=== PATIENT | female | born 1985 | race Caucasian/White ===

== ENCOUNTER 2016-07-26 22:53 | Emergency (ER) | payer SELFPAY ==
[2016-07-27] MEDS ORDERED: METOCLOPRAMIDE HCL ORAL SOLN 10 MG/10 ML UDCUP PO ONE (01:02)
[2016-07-27] MEDS ORDERED: KETOROLAC TROMETHAMINE 60 MG/2 ML SDV IM ONE (01:02)
--- NOTE | 2016-07-27 01:05 | ER Document Report ---
ED General - General Chief Complaint: High Blood Pressure Stated Complaint: POSSIBLE HIGH BLOOD PRESURE Time Seen by Provider: 07/27/16 00:55 Notes: Patient is a 31-year-old female presents with complaints of migraine headaches. She says she was diagnosed with migraines at age 9. She said she had them almost weekly until the age of 13. Since then they have been more intermittent. She says recently they have started become more consistent again. She takes Zofran and Tylenol home for the headaches and vomiting. Headaches are gradual in onset and intermittent. No focal weakness or numbness associated with them. No recent trauma or injuries. No neck pain. Patient also mentions that she has been having high blood pressure. She says after delivery of her child she was diagnosed with high blood pressure and placed on medications. After being on medications for 6 months I took her off medications. Since being taken off medications she says her blood pressure is very up and down. She says it is hard to keep under control. She is not gone back on any antihypertensive medications since being taken off of them. No other complaints at this time. TRAVEL OUTSIDE OF THE [place] IN LAST 30 DAYS: No - Related Data Allergies/Adverse Reactions: No Known Allergies Allergy (Verified 04/27/15 20:32) Past Medical History - Social History Smoking Status: Never Smoker Frequency of alcohol use: None Drug Abuse: None Family History: Reviewed & Not Pertinent Patient has suicidal ideation: No Patient has homicidal ideation: No - Past Medical History Cardiac Medical History: Reports: Hx Hypertension - with preg Pulmonary Medical History: Reports: Hx Asthma Neurological Medical History: Reports: Hx Migraine Renal/ Medical History: Reports: Hx Ovarian Cysts. Denies: Hx Peritoneal Dialysis Skin Medical History: Reports Hx Eczema, Denies Hx MRSA Psychiatric Medical History: Reports: Hx Anxiety Past Surgical History: Reports: Hx Section - x2 - Immunizations Immunizations up to date: Yes Hx Diphtheria, Pertussis, Tetanus Vaccination: Yes - given today Hx Pneumococcal Vaccination: 09/17/12 Review of Systems - Review of Systems Notes: My Normal Review Basic REVIEW OF SYSTEMS: CONSTITUTIONAL : Denies fever, chills, or sweats. Denies recent illness. CARDIOVASCULAR: Denies chest pain. RESPIRATORY: Denies cough, cold, or chest congestion. Denies shortness of breath, difficulty breathing, or wheezing. GASTROINTESTINAL: Denies abdominal pain. Denies nausea, vomiting, or diarrhea. Denies constipation. Last BM: GENITOURINARY: Denies difficulty urinating, painful urination, burning, frequency, or blood in urine. FEMALE GENITOURINARY: Denies vaginal bleeding, abnormal or irregular periods. Patient denies any chance she could be . MUSCULOSKELETAL: Denies neck or back pain or joint pain or swelling. SKIN: Denies rash or skin lesions. NEUROLOGICAL: Denies altered mental status or loss of consciousness. Has a headache. Denies weakness or paralysis or loss of use of either side. Denies problems with gait or speech. Denies sensory or motor loss. ALL OTHER SYSTEMS REVIEWED AND NEGATIVE. Physical Exam - Vital signs Vitals: Temp Pulse Resp BP Pulse Ox 98.3 F 86 16 152/109 H 98 07/26/16 23:02 07/26/16 23:02 07/26/16 23:02 07/26/16 23:02 07/26/16 23:02 - Notes Notes: General Appearance: Well nourished, alert, cooperative, no acute distress, mild obvious discomfort. Vitals: reviewed, See vital signs table. Head: no swelling or tenderness to the head Eyes: PERRL, EOMI, Conjuctiva clear Mouth: No decreasd moisture Lungs: No wheezing, No rales, No rhonci, No accessory muscle use, good air exchange bilaterally. Heart: Normal rate, Regular rythm, No murmur, no rub Abdomen: Normal BS, soft, No rigidity, No abdominal tenderness, No guarding, no rebound, no abdominal masses, no organomegaly Extremities: strength 5/5 in all extremities, good pulses in all extremities, no swelling or tenderness in the extremities, no edema. Skin: warm, dry, appropriate color, no rash Neuro: speech clear, oriented x 3, normal affect, responds appropriately to questions. Cranial nerves II through XII are intact. Distal sensation intact. Patient moves all extremities without difficulty. Normal gait. Normal Romberg. Course - Vital Signs Vital signs: Temp Pulse Resp BP Pulse Ox 98.3 F 86 16 152/109 H 98 07/26/16 23:02 07/26/16 23:02 07/26/16 23:02 07/26/16 23:02 07/26/16 23:02 - Transfer of Care Notes: 07/27/16 02:17 Patient's headache is much improved. I will write her prescription for Reglan to take with her Winnie. Her headaches are very typical of her previous migraines. They are not sudden or maximal in onset. She has no neurologic deficits. She does have hypertension. She has a strong family history of hypertension stroke at a young age. I will place her on hydrochlorothiazide. She has an upcoming appointment with her doctor third week of this month. I encouraged her to discuss this further with her doctor to show them the medication that we are starting her on. Patient encouraged to return to ER if she has worsening of her symptoms or feels unwell. Patient agrees with plan and will be discharged home. Dictation of this chart was performed using voice recognition software; therefore, there may be some unintended grammatical errors. Discharge - Discharge Clinical Impression: Hypertension Qualifiers: Hypertension type: essential hypertension Qualified Code(s): I10 - Essential ( primary) hypertension Headache Qualifiers: Headache type: unspecified Headache chronicity pattern: episodic headache Intractability: not intractable Qualified Code(s): R51 - Headache Condition: Good Disposition: HOME, SELF-CARE Instructions: Hydrochlorothiazide ([facility]) Additional Instructions: Please take the medication as prescribed for you headaches. Please follow up with your doctor as scheduled and discuss with them further management of your blood pressure. Please stop taking the blood pressure medication if your blood pressure begins to fall below 110/70. Please return to the ER immediately if you have intractable headaches, fevers, weakness or numbness of your arms or legs, or if you feel unwell. Prescriptions: Hydrochlorothiazide 12.5 mg PO DAILY #30 capsule Metoclopramide HCl [Reglan 10 mg Tablet] 1 tab PO ASDIR PRN #25 tablet PRN Reason: Forms: Return to Work
[2016-07-27 02:25] VITALS: BP 121/81
== END 2016-07-27 02:24 | disposition home or self-care (01) ==
LOC: ER 22:53
DX: I10 Essential (primary) hypertension (principal); G43.909 Migraine, unspecified, not intractable, without status migrainosus; J45.909 Unspecified asthma, uncomplicated; Z82.3 Family history of stroke; Z82.49 Family history of ischemic heart disease and other diseases of the circulatory system
CPT/HCPCS: 99283; 96372; J1885